=== PATIENT | male | born 1985 | race Hispanic/Latino ===

== ENCOUNTER 2019-07-12 12:27 | Emergency (ER) | payer BC ==
[~2019-07-12] VITALS: Ht 182.9 cm; Wt 132.9 kg
[2019-07-12 12:29] VITALS: BP 127/74
--- NOTE | 2019-07-12 13:11 | DIREP ---
PROCEDURE:CHEST 1 VIEW COMPARISON:None. INDICATIONS:SOB FINDINGS: LUNGS/PLEURA:No significant pulmonary parenchymal abnormalities or pleural effusion. CARDIAC:Normal cardiac silhouette and normal pulmonary vascularity. MEDIASTINUM:Normal BONES:Normal OTHER:No additional findings. CONCLUSION:No acute cardiopulmonary process. Dictated by: Hanny Coughlin MD on 07/12/2019 at 01:09 PM
[2019-07-12 13:24] LABS: BASOPHIL % 0.2 % (0.0-0.2); EOSINOPHIL # 0.1 10^3/uL (0.0-0.2); EOSINOPHIL % 0.6 % (0.0-5.0); LYMPHOCYTES # 0.88 10^3/uL1 (1.0-4.8); LYMPHOCYTES % 10.8 % (24.0-44.0); MEAN CORP HGB 28.6 pg (26-34); MONOCYTES # 0.3 10^3/uL (0.3-0.8); MONOCYTES % 3.7 % (5.0-12.0); NEUTROPHIL # 6.9 10^3/uL (1.8-7.7); NEUTROPHILS % 84.6 % (41.0-85.0); PLATELET COUNT 187 10^3/uL (150-400); RED CELL DISTRIBUTION WIDTH 12.7 % (11.5-14.5)
--- NOTE | 2019-07-12 13:24 | ER.PDOC ---
General Chief Complaint: Nausea,Vomiting,Diarrhea Stated Complaint: SOB Time seen by MD: 13:21 Source: patient Exam Limitations: no limitations History of Present Illness Initial Comments Ate Burrito and vomited 6 times and became SOB. No chest pain, fever or chills. He started coughing yesterday. His SOB is almost resolved. No diarrhea and she does not nauseated at this time. Severity: moderate Activities at Onset: activity/exertion Prior Episodes/Possible Cause: no prior episodes Associated Symptoms: cough Past Medical History Medical History: no pertinent history Surgical History: back Social History Alcohol Use: none Drug Use: none Review of Systems Constitutional: no symptoms reported EENTM: no symptoms reported Respiratory: see HPI Cardiovascular: no symptoms reported Gastrointestinal: see HPI All Other Systems: Reviewed and Negative Physical Exam General Appearance: No Apparent Distress, WD/WN Neck: Non-Tender, Full Range of Motion, Supple, Normal Inspection Respiratory: chest non-tender, lungs clear, normal breath sounds, no respiratory distress, no accessory muscle use Cardiovascular: Normal Peripheral Pulses, Regular Rate, Rhythm, No Edema, No Gallop, No JVD, No Murmur Gastrointestinal: Normal Bowel Sounds, No Organomegaly, No Pulsatile Mass, Non Tender, Soft Extremities: Normal Range of Motion, Non-Tender, Normal Inspection, No Pedal Edema, No Calf Tenderness, Normal Capillary Refill Neurologic/Psychiatric: manager change II-XII NML as Tested, No Motor/Sensory Deficits, Alert, Normal Mood/Affect, Oriented x 3 Skin: Normal Color, Warm/Dry Results/Orders Results/Orders Orders - MERON FOSS MD Cbc With Auto Diff (07/12/19 13:02) Comprehensive Metabolic Panel (07/12/19 13:02) Troponin I (07/12/19 13:02) D-Dimer (07/12/19 13:02) Xr Chest 1v (07/12/19 13:02) Ekg-Routine (07/12/19 13:02) Influenza A&B (07/12/19 13:19) Vital Signs Date Time Temp Pulse Resp B/P (MAP) Pulse Ox O2 Delivery O2 Flow Rate FiO2 07/12/19 12:29 97.8 89 20 97 07/12/19 12:29 97.8 89 20 07/12/19 12:29 97.8 89 20 127/74 (91) 97 Room Air Laboratory Tests Test 07/12/19 13:17 07/12/19 13:19 White Blood Count 8.1 10^3/uL (4.5-11.0) Red Blood Count 4.96 10^6/uL (4.50-5.90) Hemoglobin 14.2 g/dL (13.9-16.3) Hematocrit 42.1 % (37.0-53.0) Mean Corpuscular Volume 84.9 fL (78-100) Mean Corpuscular Hemoglobin 28.6 pg (26-34) Mean Corpuscular Hemoglobin Concent 33.7 g/dL (33-36.5) Red Cell Distribution Width 12.7 % (11.5-14.5) Platelet Count 187 10^3/uL (150-400) Mean Platelet Volume 10.1 fL (7.8-11.0) Neutrophils (%) (Auto) 84.6 % (41.0-85.0) Lymphocytes (%) (Auto) 10.8 % (24.0-44.0) L Monocytes (%) (Auto) 3.7 % (5.0-12.0) L Neutrophils # (Auto) 6.9 10^3/uL (1.8-7.7) Lymphocytes # (Auto) 0.88 10^3/uL1 (1.0-4.8) L Monocytes # (Auto) 0.3 10^3/uL (0.3-0.8) Absolute Immature Granulocyte (auto 0.01 10^3 u/L (0-2) Absolute Eosinophils (auto) 0.1 10^3/uL (0.0-0.2) Immature Granulocytes % 0.10 % (0.00-0.50) Eosinophils % 0.6 % (0.0-5.0) Basophils % 0.2 % (0.0-0.2) Basophils # 0.0 10^3/uL (0.0-0.1) D-Dimer 0.20 mg/L (0.19-0.49) Sodium Level 139 mmol/L (132-145) Potassium Level 3.6 mmol/L (3.6-5.2) Chloride Level 102.0 mmol/L (96-109) Carbon Dioxide Level 28.4 mmol/L (20.0-32) Anion Gap 12.2 Blood Urea Nitrogen 16 mg/dL (7-18) Creatinine 0.98 mg/dL (0.59-1.40) Estimated GFR () 105.9 (>/=60) Est GFR (CKD-EPI)(Non-Afr Scottish) 87.6 (>/=60) BUN/Creatinine Ratio 16.0 Glucose Level 162 mg/dL (70-110) H Calcium Level 8.7 mg/dL (8.4-10.5) Total Bilirubin 0.3 mg/dL (0.2-1.0) Aspartate Amino Transferase (AST) 17 U/L (0-35) Alanine Aminotransferase (ALT) 23 U/L (12-78) Alkaline Phosphatase 79 U/L (50-136) Troponin I < 0.02 ng/mL (0.00-0.05) Total Protein 7.3 g/dL (6.4-8.2) Albumin 3.9 g/dL (3.4-5.0) Globulin 3.4 Influenza Type A Antigen NEGATIVE (NEG) Influenza B Immunofluorescence NEGATIVE (NEG) Progress Progress Patient's symptoms completely resolved and he is feeling hungry and wants to go home and eat. EKG/XRAY/CT/US XRAY: chest (No active disease) Course Vitals & review Data Vital Sign - Last 24 Hours 07/12/19 07/12/19 07/12/19 12:29 12:29 12:29 Temp 97.8 97.8 97.8 Pulse 89 89 89 Resp 20 20 20 B/P (MAP) 127/74 (91) Pulse Ox 97 97 O2 Delivery Room Air Laboratory Tests Test 07/12/19 13:17 07/12/19 13:19 White Blood Count 8.1 10^3/uL Red Blood Count 4.96 10^6/uL Hemoglobin 14.2 g/dL Hematocrit 42.1 % Mean Corpuscular Volume 84.9 fL Mean Corpuscular Hemoglobin 28.6 pg Mean Corpuscular Hemoglobin Concent 33.7 g/dL Red Cell Distribution Width 12.7 % Platelet Count 187 10^3/uL Mean Platelet Volume 10.1 fL Neutrophils (%) (Auto) 84.6 % Lymphocytes (%) (Auto) 10.8 % Monocytes (%) (Auto) 3.7 % Neutrophils # (Auto) 6.9 10^3/uL Lymphocytes # (Auto) 0.88 10^3/uL1 Monocytes # (Auto) 0.3 10^3/uL Absolute Immature Granulocyte (auto 0.01 10^3 u/L Absolute Eosinophils (auto) 0.1 10^3/uL Immature Granulocytes % 0.10 % Eosinophils % 0.6 % Basophils % 0.2 % Basophils # 0.0 10^3/uL D-Dimer 0.20 mg/L Sodium Level 139 mmol/L Potassium Level 3.6 mmol/L Chloride Level 102.0 mmol/L Carbon Dioxide Level 28.4 mmol/L Anion Gap 12.2 Blood Urea Nitrogen 16 mg/dL Creatinine 0.98 mg/dL Estimated GFR () 105.9 Est GFR (CKD-EPI)(Non-Afr Scottish) 87.6 BUN/Creatinine Ratio 16.0 Glucose Level 162 mg/dL Calcium Level 8.7 mg/dL Total Bilirubin 0.3 mg/dL Aspartate Amino Transf (AST/SGOT) 17 U/L Alanine Aminotransferase (ALT/SGPT) 23 U/L Alkaline Phosphatase 79 U/L Troponin I < 0.02 ng/mL Total Protein 7.3 g/dL Albumin 3.9 g/dL Globulin 3.4 Influenza Type A Antigen NEGATIVE Influenza B Immunofluorescence NEGATIVE O2 Sat by Pulse Oximetry: 97 Departure Time of Disposition: 14:10 Disposition: 01 HOME, SELF-CARE Impression: Primary Impression: Nausea & vomiting Additional Impressions: Anxiety URI, acute Condition: Improved Referrals: PCP,UNKNOWN (PCP) PRIMARY CARE PROVIDER Additional Instructions: Mucinex DM OTC as directed F/U with PCP in 2-3 days Return to ED if worsening symptoms or concerns Duration or Time Spent with Pa: 45 mins Problem Qualifiers Primary Impression: Nausea & vomiting Vomiting type: unspecified Vomiting Intractability: non-intractable Thomas lified Codes: R11.2 - Nausea with vomiting, unspecified MERON FOSS MD Jul 12, 2019 13:24
[2019-07-12 13:27] VITALS: BP 134/66
[2019-07-12 13:46] LABS: ALANINE AMINOTRANSFERASE(ML) 23 U/L (12-78); ALKALINE PHOSPHATASE 79 U/L (50-136); ASPARTATE AMINO TRANSFERASE 17 U/L (0-35); CALCIUM 8.7 mg/dL (8.4-10.5); CARBON DIOXIDE 28.4 mmol/L (20.0-32); GLUCOSE 162 mg/dL (70-110)
[2019-07-12 14:12] VITALS: BP 110/66
--- NOTE | 2019-07-12 14:49 | PCM.EKG ---
[facility] Test Date: 2019-07-12 Test Time: 12:43:43 Pat Name: JEANNE HALL Department: Patient ID: [id number] Room: Gender: M Infectious Waste Technician: TB : 1985 Requested By: MERON FOSS Order Number: [id number] Reading MD: Meron FOSS Measurements Intervals [place] Rate: 67 P: 35 CO: 150 QRS: 59 QRSD: 105 T: 46 QT: 404 QTc: 427 Interpretive Statements Sinus rhythm No previous ECG available for comparison Electronically Signed On 07-16-2019 17:25:39 CARTOGRAPHIC DRAFTER by Meron FOSS Please click the below link to view image of tracing.
== END 2019-07-12 14:24 | disposition home or self-care (01) ==
LOC: ER 12:27
DX: F41.9 Anxiety disorder, unspecified (principal); J06.9 Acute upper respiratory infection, unspecified; R11.2 Nausea with vomiting, unspecified
CPT/HCPCS: 36415; 71045; 80053; 84484; 85025; 85379; 87804; 93005; 99285